=== PATIENT | male | born 1965 | race Caucasian/White ===

== ENCOUNTER → 2016-07-13 | Outpatient (CLI) | payer OTHER ==
--- NOTE | 2016-07-13 17:01 | RADIOLOGY REPORT PS360 ---
CHEST(2 VIEWS-NOT PORTABLE) COMPARISON: None HISTORY: Cough TECHNIQUE: PA and lateral chest FINDINGS: This is a somewhat poor inspiration however lung palomo are clear of infiltrate. 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 There is mild to moderate generalized cardio megaly however the vascularity is normal and is no pleural fluid. The bony thorax is normal. IMPRESSION: Mild cardio megaly, no acute chest pathology noted
== END ==
LOC: RAD 12:46
DX: R05 Cough (principal)